=== PATIENT | female | born 1975 | race Two or more races ===

== ENCOUNTER → 2024-06-08 | Outpatient (CLI) | payer MEDICAID, SELFPAY ==
--- NOTE | 2024-06-08 13:00 | XR_ITS ---
Examination: Breast ultrasound, unilateral, right complete Date and time of exam: June 08, 2024 1338 hours INDICATIONS: 10:00 nodule 20 mm 10:00 nodule 11 mm on right breast sonogram December 18, 2023 Technique: Real-time colbert scale ultrasonographic imaging performed right breast including all 4 quadrants as well as nipple retroareolar and axillary region. Findings: 10:00 oval mass 21 x 20 mm lobular margins 10:00 oval mass 9 x 10 mm lobular margins IMPRESSION: BI-RADS Category 3: Probably benign findings Recommend 1 additional 6 month right breast sonogram follow-up to document continued stability of nodules described above
== END | disposition home or self-care (01) ==
LOC: CDIM 13:19
PROVIDERS: PCP Nurse Practitioner Family; Referring Provider Nurse Practitioner Family; Visit Provider Nurse Practitioner Family
DX: N63.11 Unspecified lump in the right breast, upper outer quadrant (principal)
CPT/HCPCS: 76641

== ENCOUNTER 2024-08-03 08:28 | Emergency (ER) | payer MEDICAID, SELFPAY ==
[2024-08-03 08:34] VITALS: BMI 30.4
[2024-08-03 08:45] VITALS: BP 154/99; PULSE 83; RESP 16; TEMP 36.7; O2SAT 98
--- NOTE | 2024-08-03 08:56 | PD.EDRME ---
Rapid Medical Screening Exam [facility] Arrival date/time: 08/03/24 08:28 48-year-old female with no known medical history presents to the emergency room with a chief complaint of left eye pressure and pain x 2 days. Patient states she had cataract surgery in her left eye 3 weeks ago. I have greeted and performed a focused initial assessment of this patient. A comprehensive ED assessment and evaluation of the patient, analysis of all test results, and completion of the medical decision making process will be conducted by additional ED providers. Chief Complaint: Eye Problems Vital signs: Vital Signs Temperature 98.1 F 08/03/24 08:45 Pulse Rate 83 08/03/24 08:45 Respiratory Rate 16 08/03/24 08:45 Blood Pressure 154/99 H 08/03/24 08:45 Pulse Oximetry (%) 98 08/03/24 08:45 Oxygen Delivery Method Room Air 08/03/24 08:45 Vital signs reviewed by provider: Yes
[2024-08-03] MEDS: FLUORESCEIN SOD 1 MG STRP LEFT EYE (13:25)
[2024-08-03] MEDS: TETRACAINE PF OP SOL 0.5% 4 ML DRPETTE 1 DROP LEFT EYE (13:26)
--- NOTE | 2024-08-03 14:31 | EDNOTE_ITS ---
<Statement entered by Bere Barnes MD - 08/03/24 17:56> As co-signing physician, I was present and available for consult prn. I concur with the plan and care as documented by the midlevel provider. ED General RME/HPI General Chief complaint: Eye Problems Stated complaint: L EYE PAIN AND REDNESS Time Seen by Provider: 08/03/24 14:15 Arrival date/time: 08/03/24 08:28 CC: Left lateral eye burning sensation and pain HPI onset early this morning, at the time of the exam at 1430, the all the pain and burning had resolved. The patient denies any blurred vision or seeing spots. The patient, by description of her procedure, and had a pterygium removed from her eye 3 weeks ago. Patient has a scab still follow-up appointment the beginning of September. At the time of the exam the patient has no complaints no eye pain mild headache no blurred vision or loss of vision. RME / HPI RME / HPI narrative: 08/03/24 08:28 48-year-old female with no known medical history presents to the emergency room with a chief complaint of left eye pressure and pain x 2 days. Patient states she had cataract surgery in her left eye 3 weeks ago. I have greeted and performed a focused initial assessment of this patient. A comprehensive ED assessment and evaluation of the patient, analysis of all test results, and completion of the medical decision making process will be conducted by additional ED providers. Related Data Previous Rx's ?Medication ?Instructions ?Recorded ibuprofen 400 mg tablet 400 mg PO Q8H #14 tabs 08/03 Allergies Allergy/AdvReac Type Severity Reaction Status Date / Time No Known Allergies Allergy Verified 08/03/24 08:30 Review of Systems Review of Systems Narrative Review of Systems: GEN: No fever, no chills, no weight loss EYES: No discharge, no visual changes, + eye pain HEENT: No ear pain, no congestion, no sore throat PULM: No shortness of breath, no cough, no congestion CV: No chest pain, no dyspnea on exertion, no palpitations GI: No nausea, no vomiting, no diarrhea, no pain, no constipation : No frequency, no urgency, no dysuria MUSC/SKEL: No joint pain, no back pain SKIN: No rash PSYCH: No hallucinations, no depression HEME/LYMPH: No easy bleeding or bruising tendencies NEURO: No weakness, no headache Past Medical History Social History SMOKING STATUS: Never smoker ED Exam Narrative Physical exam: [General: Obese not in cot no acute distress Head normocephalic HEENT: Eyes: Right eye EOMs intact pupils are PERRLA no abrasion laceration or foreign body, left eye sclera is somewhat edematous to the medial aspect close to the medial canthus, eye has full range of motion pupil is PERRLA. No abrasions to the cornea. Within acceptable limits Neck is supple nontender Chest equal chest rise nontender to palpation Respiratory: Clear to auscultation no wheezes crackles or rubs CV: Rate rhythm is regular no murmurs rubs or clicks Course Quality Measures none Orders Category Date Time Status Tonometer to Bedside X1 Care 08/03/24 08:55 Active Visual Acuity X1 Care 08/03/24 08:55 Active [place] Lamp to Bedside X1 Care 08/03/24 08:55 Active Fluorescein Sodium [[id number]-H-[id number]] Med 08/03/24 08:55 Discontinued 1 mg LEFT EYE X1 ONE TETRACAINE Op Erica 0.5% [Pontocaine Op Erica 0.5%] Med 08/03/24 08:55 Discontinued 1 drop LEFT EYE X1 ONE Vital Signs Vital signs: Vital Signs Temperature 98.1 F 08/03/24 08:45 Pulse Rate 83 08/03/24 08:45 Respiratory Rate 16 08/03/24 08:45 Blood Pressure 154/99 H 08/03/24 08:45 Pulse Oximetry (%) 98 08/03/24 08:45 Oxygen Delivery Method Room Air 08/03/24 08:45 [facility] Patient data External records reviewed:: [facility] previous records Clinical information provided by:: patient Social determinants that could affect healthcare access:: none Patient has the following chronic illnesses:: Removal of a pterygium 3 weeks ago How is presenting disease/condition affected by chronic disease/condition?: uneffected by Evaluation data The following diagnostics were reviewed and interpreted by me:: other (specify) (None) Lab and/or radiology exams considered but not ordered:: None Interpretation Summary: Dry eye eye irritation Medications Medications considered but not ordered:: None Medication administrations:: Medication Administration History Discontinued Medications Fluorescein Sodium (Fluorescein Sod 1 Mg Strp) 1 mg LEFT EYE X1 ONE Stop: 08/03/24 08:56 Last Admin: 08/03/24 13:25 Dose: 1 mg Documented By: ER Tetracaine HCl (Tetracaine Pf Op Erica 0.5% 4 Ml Drpette) 1 drop LEFT EYE X1 ONE Stop: 08/03/24 08:56 Last Admin: 08/03/24 13:26 Dose: 1 drop Documented By: ER Comments: USED BY MD None Consultations Consultation(s) initiated? (list below): No Diagnosis Differential Diagnosis ED Complaint MDM: Corneal abrasion conjunctivitis aqueous hemorrhage Most likely diagnosis given after review of the tests above:: dry eye Admission Indicated Admission indicated?: not indicated Explain why admission is indicated or not indicated:: None Admission Request Was there a request for admission?: No Disposition Plan Disposition Plan: Discharge Discharge Attestation Discharge Attestation: The patient and all family members were given an opportunity to ask questions and understood the discharge instructions. Discharge instructions specifically effects, indications for sooner follow up or return to the emergency department, and the expected course of current diagnosis. Patient condition: Stable Medical Decision Making Differential Diagnosis Differential Diagnosis: Corneal abrasion conjunctivitis aqueous hemorrhage Discharge Plan Plan Patient Disposition: HOME (Self Care) Patient condition on transfer: Stable Prescriptions/Referrals Prescriptions/Med Rec: New ibuprofen 400 mg tablet 400 mg PO Q8H Qty: 14 0RF Referrals: Rea Barnett MD [Primary Care Provider] - In 1 week Problem List Clinical Impression: Dry eye, Headache Patient/Caregiver Discharge Instructions Other Activity Instructions:: Follow-up with your eye doctor if there is a worsening of symptoms return the emergency room for reevaluation. Education Materials: Treating Dry Eyes, Self-Care for Headaches Print Language: Mosotho Stand Alone Forms: [place] Award Info., Patient Portal Info Letter, Work/School Release PA/[employer] Supervising Physician PA/[employer] Supervising Physician: Temo Reno ENP
== END 2024-08-03 14:43 | disposition home or self-care (01) ==
PROVIDERS: Emergency Provider Emergency Medicine; PCP Obstetrics & Gynecology
DX: R68.89 Other general symptoms and signs (principal); R51.9 Headache, unspecified
CPT/HCPCS: 99283

== ENCOUNTER → 2025-04-13 | Outpatient (CLI) | payer MEDICAID, SELFPAY ==
--- NOTE | 2025-04-13 15:30 | XR_ITS ---
Examination: Breast ultrasound, unilateral, right Date and time of exam: April 13, 2025, 1526 hours INDICATIONS: 10:00 nodule 21 mm 10:00 nodule 10 mm on right breast sonogram June 08, 2024 Technique: Real-time colbert scale ultrasonographic imaging performed right breast including all 4 quadrants as well as nipple retroareolar and axillary region. Findings: 10:00 nodule 19 x 14 mm 10:00 nodule 12 x 9 mm, both nodules with lobular margins IMPRESSION: BI-RADS Category 3: Probably benign findings Recommend 1 continued 6-month follow-up right breast mammogram
== END | disposition home or self-care (01) ==
PROVIDERS: PCP Nurse Practitioner Family; Referring Provider Nurse Practitioner Family; Visit Provider Nurse Practitioner Family
DX: N63.10 Unspecified lump in the right breast, unspecified quadrant (principal)
CPT/HCPCS: 76641